=== PATIENT | male | born 1970 | race Hispanic/Latino ===

== ENCOUNTER 2018-10-30 10:24 | Emergency (ER) | payer OTHER ==
[2018-10-30] MEDS ORDERED: IBUPROFEN 800 MG TAB ONE (11:27)
[2018-10-30] MEDS ORDERED: HYDROCODONE/ACETAMINOPHEN 5/325 MG TAB ONE (11:28)
== END 2018-10-30 11:54 | disposition home or self-care (01) ==
LOC: EDH 10:24
DX: S29.011A Strain of muscle and tendon of front wall of thorax, initial encounter (principal); S29.012A Strain of muscle and tendon of back wall of thorax, initial encounter; Z72.0 Tobacco use; V49.49XA Driver injured in collision with other motor vehicles in traffic accident, initial encounter; Y93.89 Activity, other specified; Y92.89 Other specified places as the place of occurrence of the external cause; Y99.8 Other external cause status
CPT/HCPCS: 71045; 93005

== ENCOUNTER 2018-11-01 16:13 | Emergency (ER) | payer OTHER ==
[2018-11-01 17:09] LABS: APPEARANCE,URINE Clear (CLEAR); BILIRUBIN,URINE Negative (NEGATIVE); COLOR,URINE Yellow (YELLOW); GLUCOSE, URINE (UA) Negative (NEGATIVE); KETONES,URINE Negative (NEGATIVE); LEUKOCYTE ESTERASE ,URINE Negative (NEGATIVE); NITRATE,URINE Negative (NEGATIVE); OCCULT BLOOD,URINE Negative (NEGATIVE); PROTEIN,URINE Negative (NEGATIVE); UROBILINOGEN,URINE 0.2 mg/dL (0.2-1.0)
== END 2018-11-01 19:18 | disposition home or self-care (01) ==
LOC: EDH 16:13
DX: S09.8XXD Other specified injuries of head, subsequent encounter (principal); H54.50 Low vision, one eye, unspecified eye; Z72.0 Tobacco use; V43.52XD Car driver injured in collision with other type car in traffic accident, subsequent encounter
CPT/HCPCS: 70450; 81003

== ENCOUNTER 2019-03-07 09:44 | Emergency (ER) | payer OTHER | END 2019-03-07 09:58 | LOC: EDH 09:44 → EEVIPCON 09:44 → EDH 09:58 | DX: Z02.83 Encounter for blood-alcohol and blood-drug test (principal); Z72.0 Tobacco use ==